=== PATIENT | male | born 1985 | race Caucasian/White ===

== ENCOUNTER 2017-04-15 15:51 | Emergency (ER) | payer SELFPAY ==
[2017-04-15] MEDS ORDERED: KETOROLAC TROMETHAMINE 60 MG/2 ML VIAL IM ONE ×2 (16:25→16:47)
--- NOTE | 2017-04-15 16:25 | ERNOTE ---
Chest Pain/Cardiac HPI Date of Service: 04/15/17 Chief Complaint: Chest Pain Time Seen by Provider: 04/15/17 16:09 Source: patient, RN notes reviewed Exam Limitations: no limitations Immunizations: IMMUNIZATION HX Immunizations Up to Date Yes Allergies/Adverse Reactions: Allergies No Known Allergies Allergy (Unverified 04/15/17 15:54) Home Medications: HOME MEDICATIONS Naproxen [Naprosyn] 500 mg PO BID #30 tablet 04/15/17 [Last Taken Unknown] Narrative: 31 y/o male ambulatory to the ED for chest pain that has been present for over a month. He had a more severe episode of pain today while driving. He also had lightheadedness. EMS was called. The patient then refused transport. This was over 2 hours ago. He has seen his PCP for his pain. A stress test was ordered but has not yet been done. He states that his pain is constant and even keeps him awake at night sometimes. The pain gets worse with deep breathing. He has not tried taking anything for the pain. Timing: constant, getting worse Severity/Quality: aching Location: substernal Chest Pain Radiation: other - Occasionally - to left arm or right chest Activities at Onset: none Nitro Today/Relief: no nitro taken today Aspirin Treatment Today: no aspirin today Prior Chest Pain/Cardiac Workup: Reports: no prior cardiac workup Prior Treatment: Reports: recently seen, treated by physician. Denies: currently on antibiotics Review of Systems - Review of Systems Constitutional: Absent: fever, chills, malaise EYE: Present: no symptoms reported ENT: Absent: nose congestion, sore throat Respiratory: Present: shortness of breath, cough. Absent: wheezing, stridor Cardiology: Present: chest pain. Absent: palpitations, syncope Gastrointestinal/Abdominal: Absent: nausea, vomiting, abdominal pain Genitourinary: Present: no symptoms reported Musculoskeletal: Absent: back pain, neck pain, joint pain Skin: Absent: rash, lesions, lumps Neurological: Absent: headache, weakness, numbness, tingling Endocrine: Absent: excessive sweating, flushing Hematologic/Lymphatic: Present: no symptoms reported Psych: Absent: anxiety, depressed - Patient's Past Medical History Patient History - Medical: No pertinent hx Patient History - Cardiac/Respiratory: No pertinent hx Patient History - Cancer: No Hx of Cancer Patient History - Surgical Procedures: Noncontributory, Other Patient History - Other: None - Social History Living Situations: home Abuse History: No History of abuse Psych History: No pertinent hx Smoking Status: Former smoker Have you smoked in the past 12 months: No Do you dip or chew tobacco: No Alcohol Use: none Drug Use: none - Immunizations Immunizations Up to Date: Yes Physical Exam - Physical Exam General Appearance: Present: wd/wn, alert, no apparent distress Head Exam: Present: normal inspection Eye Exam: Normal inspection: bilateral Ears, Nose, Throat: Present: normal ENT inspection Neck: Present: normal inspection, nontender, supple, full range of motion. Absent: thyromegaly Respiratory: Present: no respiratory distress, normal breath sounds, no accessory muscle use, chest nontender, lungs clear Cardiovascular/Chest: Present: regular rate, rhythm, no murmur, normal peripheral pulses Gastrointestinal/Abdominal: Present: normal bowel sounds, nontender, nondistended, soft Extremity Exam: Present: normal inspection, normal range of motion, no edema Neurological Exam: Present: alert, oriented, normal mood/affect, no motor/ sensory deficits Skin Exam: Present: normal color, warm/dry ED Progress - Results and Orders Patient's Lab Results:: I have reviewed the patient's lab results. - Vital Signs Patient's Vital Signs:: I have reviewed the patient's vital signs. Vital Signs: Vital Signs 04/15/17 04/15/17 04/15/17 15:52 16:00 16:22 Temperature 36.7 C 36.7 C Pulse Rate 66 66 85 Respiratory 14 14 13 Rate Blood Pressure 139/85 139/85 147/85 O2 Sat by Pulse 99 99 99 Oximetry - EKG EKG: NSR, nonspecific ST T wave changes EKG read: Reviewed by me - X-Ray X-Ray #1 X-Ray: chest Interpretation: Reviewed by me X-ray Comments: NO acute cardiopulmonary process noted - Progress/Reassessment Chief Complaint: Chest Pain Progress:: Unchanged Plan - Plan Plan: Work-up unremarkable - negative troponin and Ddimer, normal chest xray, no specific EKG findings. Pain is likely musculoskeletal in origin. Departure - Departure Clinical Impression: Chest pain, musculoskeletal Disposition: Home Follow Up Needed Condition: Good Instructions: Costochondritis, [id number] Additional Instructions: Return to the ER if symptoms worse, otherwise follow up with your PCP if symptoms persist Referrals: Elisabeth Cummings MD [Primary Care Provider] - Prescriptions: Naproxen [Naprosyn] 500 mg PO BID #30 tablet
[2017-04-15 16:55] LABS: Hematocrit 47.6 % (42.0-52.0); Hemoglobin 16.2 gm/dL (13.5-18.0); Mean Cell Volume 83.8 fl (78-100); Mean Corpuscular Hemoglobin 28.5 pg (27-31); Mean Platelet Volume 10.8 fl (6.0-9.5); Neutrophil # 6.2 K/mm3 (1.3-6.0); Neutrophil % 77.6 % (42-75.0); Platelet Count 180 K/mm3 (150-450); Red Blood Count 5.68 M/mm3 (4.7-6.0); Red Cell Distribution Width 12.4 % (11.5-14.0)
[2017-04-15 17:17] LABS: ALT 19 U/L (19-67); AST 14 U/L (0-48); Albumin * 4.5 gm/dl (3.4-5.0); Alkaline Phosphatase * 57 U/L (50-170); Anion Gap 14.7 mmol/L (6.8-13.8); BUN/Creatinine Ratio 13.2 (9.0-21.6); Bilirubin, Total 0.7 mg/dL (0.0-1.1); Blood Urea Nitrogen 14 mg/dL (6-23); Ca. Corrected For Albumin 8.1 mg/dL (8.4-10.2); Calcium * 8.8 mg/dL (7.9-10.9); Carbon Dioxide 26.4 mmol/L (24-32.6); Chloride 106 mmol/L (97-106); Glucose * 92 mg/dL (70-110); Potassium 4.1 mmol/L (3.4-4.6); Sodium 143 mmol/L (132-142); Total Protein 7.4 gm/dL (6.2-8.2); Troponin I Less than 0.017 ng/ml (0.00-0.10)
[2017-04-15 18:28] VITALS: BP 122/73
== END 2017-04-15 17:50 | disposition home or self-care (01) ==
LOC: ER 15:51
DX: R07.89 Other chest pain (principal)